=== PATIENT | male | born 1945 | race Caucasian/White ===

== ENCOUNTER → 2021-11-09 09:42 | Outpatient (CLI) | payer MEDICARE, SELFPAY ==
--- NOTE | 2021-11-09 09:49 | DI.US.S_ITS ---
PROCEDURE: US ABD AORTA ANEURYSM SCREEN INDICATIONS: SCREENING TECHNIQUE: Real time scanning was performed of the aorta and iliac arteries, with image documentation. COMPARISON: None. FINDINGS: Aorta: Proximal aortic diameter measures 2.3 cm. Mid-aorta measures 2.2 cm. Distal aortic diameter is 1.7 cm. Iliac arteries: Right common iliac artery measures 1.5 cm. Left common iliac artery measures 2.1 cm. IMPRESSION: 1. No evidence of abdominal aortic aneurysm. 2. 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 Comment: Based on the size of the left common iliac artery, no routine follow-up is suggested. Dictated by: Krishna Ho M.D. on 11/09/2021 at 13:58 Approved by: Krishna Ho M.D. on 11/09/2021 at 14:02
== END ==
PROVIDERS: Referring Provider Family Medicine; Visit Provider Family Medicine
DX: Z13.6 Encounter for screening for cardiovascular disorders (principal)
CPT/HCPCS: 76706